=== PATIENT | male | born 1950 | race Asian ===

== ENCOUNTER 2018-11-17 13:28 | Emergency (ER) | payer MEDICARE, OTHER ==
[~2018-11-17] VITALS: Ht 182.9 cm; Wt 99.8 kg
[2018-11-17 13:43] VITALS: BP 170/98
[2018-11-17 14:01] LABS: Basophils # (auto) 0.1 uL; Basophils % (auto) 0.6 % (0.0-2.0); Eosinophils # (auto) 0.1 uL; Hematocrit 43.3 % (41.0-53.0); Hemoglobin 14.8 g/dL (13.5-17.5); Lymphocytes # (auto) 1.5 uL; Mean Corpuscular Hemoglobin 33.3 pg (28.0-32.0); Mean Corpuscular Hgb Conc. 34.1 g/dL (32.0-36.0); Mean Corpuscular Volume 97.7 fL (80.0-100.0); Monocytes # (auto) 0.5 uL; Monocytes % (auto) 4.1 % (0.0-12.0); Neutrophils # (auto) 9.6 uL; Neutrophils % (auto) 81.3 % (37.0-80.0); Platelet Count (auto) 160 10^3/uL (140-450); Red Blood Cells 4.44 10^6/uL (4.5-5.90); Red Cell Distribution Width 14.2 % (11.8-14.3); White Blood Cell 11.9 10^3/uL (4.4-10.8)
[2018-11-17 14:21] LABS: Albumin 3.7 g/dL (3.4-5.0); Anion Gap 8 (5-15); Blood Urea Nitrogen 17 mg/dL (7-18); Calcium 8.2 mg/dL (8.5-10.1); Carbon Dioxide 25 mmol/L (21-32); Chloride 104 mmol/L (98-107); Glucose 150 mg/dL (74-106); Potassium 3.3 mmol/L (3.5-5.1); Sodium 137 mmol/L (136-145)
[2018-11-17 14:26] LABS: Alanine Aminotransferase 23 U/L (16-61); Alkaline Phosphatase 87 U/L (45-117); Aspartate Aminotransferase 15 U/L (15-37); Bilirubin, Total 0.7 mg/dL (0.2-1.0); GFR African American 63 mL/min; GFR Non-African American 52 mL/min; Total Protein 7.4 g/dL (6.4-8.2)
== END 2018-11-17 16:01 | disposition left against medical advice (07) ==
LOC: ER 13:28
DX: R07.89 Other chest pain (principal); R00.2 Palpitations; Z53.21 Procedure and treatment not carried out due to patient leaving prior to being seen by health care provider
CPT/HCPCS: 36415; 71046; 80053; 84484; 85025; 93005